=== PATIENT | male | born 1990 | race Caucasian/White ===

== ENCOUNTER 2017-06-27 22:22 | Emergency (ER) | payer OTHER ==
[~2017-06-27] VITALS: Ht 170.2 cm; Wt 71.2 kg
[2017-06-27 22:23] VITALS: BP 150/81
[2017-06-27] MEDS ORDERED: LORAZEPAM INJ 2 MG/ML VIAL ONE (22:43)
[2017-06-27] MEDS: LORAZEPAM INJ 2 MG/ML VIAL IM ONE (22:48)
== END 2017-06-27 23:13 | disposition home or self-care (01) ==
LOC: ER 22:23
DX: F19.10 Other psychoactive substance abuse, uncomplicated (principal); F12.90 Cannabis use, unspecified, uncomplicated; F41.9 Anxiety disorder, unspecified; R79.89 Other specified abnormal findings of blood chemistry; F17.200 Nicotine dependence, unspecified, uncomplicated; Z88.2 Allergy status to sulfonamides; Z88.1 Allergy status to other antibiotic agents
CPT/HCPCS: 82962-TC; A4606; J2060; Z7610